=== PATIENT | female | born 1975 | race Caucasian/White ===

== ENCOUNTER → 2016-11-01 | Outpatient (CLI) | payer OTHER | LOC: EDSEX 17:45 → MERGE 17:45 → BMCIMAGING 17:45 | PROVIDERS: ATTEND Family Medicine | DX: M79.641 Pain in right hand (principal) ==

== ENCOUNTER 2018-10-13 10:47 | Emergency (ER) | payer OTHER ==
--- NOTE | 2018-10-13 11:52 | EDPHY ---
H & P Time Seen by Provider: 10/13/18 11:35 HPI/ROS: CHIEF COMPLAINT: Left shoulder pain. HISTORY OF PRESENT ILLNESS: 43-year-old female here with history of left shoulder dislocation complaining of 3 days of worsening left shoulder pain. She reports that this past Friday she walked her dog 3 times which is much more frequently than normal. Her dogs quite baking requires a lot of pulling on the leash. States that evening the left shoulder woke from her sleep. The next day she did experience some tingling sensation in her left hand but this has resolved. She denies any fever chills or recent injury. She denies any chest pain or shortness of breath or any neck pain. She does report gradually worsening loss of range of motion. ROS As detailed in HPI Smoking Status: Never smoked Physical Exam: General: Alert and oriented. Nontoxic appearing. No acute distress HEENT: Pupils PERRLA. No oral lesions. Cardiopulmonary: Regular rate and rhythm. No lower extremity edema Skin: [place] warm and dry. No lesions. Muscle skeletal: Moving all 4 extremities. Equal strength in upper extremities and lower extremities. Ambulatory. Limited range of motion left shoulder without erythema or step-off or deformity. No upper extremity edema. Radial pulses strong and she is neurovascular intact distal to left shoulder. Constitutional: Initial Vital Signs Temperature (C) 36.5 C 10/13/18 10:50 Heart Rate 81 10/13/18 10:50 Respiratory Rate 16 10/13/18 10:50 Blood Pressure 125/99 H 10/13/18 10:50 O2 Sat (%) 98 10/13/18 10:50 O2 Delivery Mode Room Air Allergies/Adverse Reactions: No Known Allergies Allergy (Unverified 08/11/11 14:43) Home Medications: Medication Instructions Recorded Hydrocodone/APAP 5/325 [[place] 1 tab PO Q6 #12 tab 10/13/18 5/325 (*)] Medical Decision Making - Diagnostics Imaging Results: Imaging Impressions Shoulder X-Ray 10/13/18 11:05 Impression: Calcific tendinitis. If clinically indicated consider consultation with musculoskeletal radiology (Dr. Tay or Dr. Marino) to consider ultrasound directed therapeutic crystal lavage. ED Course/Re-evaluation: 43-year-old female here with 3 days of left shoulder pain and decreased range of motion. She is afebrile neurovascular intact with no signs of DVT, fracture , compartment syndrome, septic joint. X-ray shows calcified tendinosis. This is likely tendinitis exacerbated by walking her dog. She is placed in a sling for comfort and given [place] with pain improvement. She was referred to Orthopedics for further treatment evaluation. - Data Points Medications Given: Discontinued Medications Hydrocodone Bitart/Acetaminophen ([place] 5/325) 1 tab PO EDNOW ONE Stop: 10/13/18 12:05 Last Admin: 10/13/18 12:13 Dose: 1 tab Departure - Departure Disposition: Home, Routine, Self-Care Clinical Impression: Calcific shoulder tendinitis Condition: Good Instructions: Tendinitis (ED) Additional Instructions: Call Orthopedics at the number listed and schedule appointment for further treatment and evaluation Referrals: NONE *PRIMARY CARE P,. [Primary Care Provider] - As per Instructions Brien Fowler MD [Medical Doctor] - As per Instructions Prescriptions: Hydrocodone/APAP 5/325 [[place] 5/325 (*)] 1 tab PO Q6 #12 tab
[2018-10-13] MEDS ORDERED: HYDROCODONE/APAP 5/325 TAB PO ONE (12:04)
[2018-10-13 12:24] VITALS: BP 124/88
== END 2018-10-13 12:23 | disposition home or self-care (01) ==
DX: M75.32 Calcific tendinitis of left shoulder (principal)